=== PATIENT | male | born 1955 | race Caucasian/White ===

== ENCOUNTER → 2020-10-29 14:47 | Outpatient (CLI) | payer BC, SELFPAY ==
--- NOTE | 2020-10-29 14:50 | CT_ITS ---
STUDY: CT MAXILLOFACIAL SINUSES REASON FOR EXAM: Male, 65 years old. Sinus symptoms LEFT EAR PAIN. FLUID DRAINED FROM BEHIND LEFT EAR DRUM ONE WEEK AGO RADIATION DOSAGE (If Supplied By Facility): CTDIvol = ( 33.06 ) mGy, DLP = ( 920.62 ) mGycm TECHNIQUE: The patient was scanned in a multi detector CT scanner. High resolution axial imaging was performed without the administration of intravenous contrast material. Sagittal and coronal images were reconstructed. Individualized dose optimization techniques were used for this CT. COMPARISON: None. FINDINGS: Paranasal sinuses are clear. There is patency of the bilateral maxillary infundibuli with normal uncinate processes, ethmoid bullae, and hiatus semilunaris. Normal bilateral middle turbinates. Normal bilateral inferior turbinates. Normal midline nasal septum. There is patency of the bilateral nasal airways. The visualized osseous structures are normal. The visualized bilateral orbital contents are normal. CT/Sinus/Facial Bone IMPRESSION: 1. Normal paranasal sinuses. 2. Normal temporal bones. 3. Normal facial structures. Electronically Signed: Jamal Whitlock, at 15:45 EST Tel , Service support ,
== END ==
PROVIDERS: Referring Provider Otolaryngology; Visit Provider Otolaryngology
DX: J32.9 Chronic sinusitis, unspecified (principal)
CPT/HCPCS: 70486